=== PATIENT | female | born 1995 | race Caucasian/White ===

== ENCOUNTER 2016-12-23 16:42 | Emergency (ER) | payer MEDICAID, OTHER ==
[~2016-12-23] VITALS: Ht 152.4 cm; Wt 49.9 kg
[2016-12-23 16:55] VITALS: BP_SYST 112
[2016-12-23] MEDS ORDERED: IBUPROFEN 800 MG TABLET PO ONE (17:30)
[2016-12-23 17:48] VITALS: BP_SYST 112
== END 2016-12-23 17:48 | disposition home or self-care (01) ==
LOC: SED 16:42
DX: J20.9 Acute bronchitis, unspecified (principal)
CPT/HCPCS: 81025; 99283

== ENCOUNTER 2018-01-30 17:34 | Emergency (ER) | payer OTHER ==
[~2018-01-30] VITALS: Ht 152.4 cm; Wt 50.3 kg
[2018-01-30 17:41] VITALS: BP_SYST 132
[2018-01-30] MEDS ORDERED: IBUPROFEN 400 MG TABLET PO ONE (19:15)
[2018-01-30 19:51] VITALS: BP_SYST 128
== END 2018-01-30 19:51 | disposition home or self-care (01) ==
LOC: SED 17:34
DX: R51 Headache (principal); R11.0 Nausea; R03.0 Elevated blood-pressure reading, without diagnosis of hypertension; Z86.2 Personal history of diseases of the blood and blood-forming organs and certain disorders involving the immune mechanism
CPT/HCPCS: 70450-TC; 81025; 99284

== ENCOUNTER 2020-08-29 18:25 | Emergency (ER) | payer OTHER ==
[~2020-08-29] VITALS: Ht 152.4 cm; Wt 56.2 kg
[2020-08-29 18:27] VITALS: BP_SYST 105
[2020-08-29] MEDS ORDERED: KETOROLAC TROMETHAMINE 60 MG/2 ML VIAL IM ONE (18:45)
[2020-08-29] MEDS ORDERED: CYCLOBENZAPRINE HCL 10 MG TABLET (FLEXERIL) PO ONE (20:00)
[2020-08-29 20:05] VITALS: BP_SYST 105
== END 2020-08-29 20:06 | disposition home or self-care (01) ==
LOC: SED 18:25
DX: S16.1XXA Strain of muscle, fascia and tendon at neck level, initial encounter (principal); S46.811A Strain of other muscles, fascia and tendons at shoulder and upper arm level, right arm, initial encounter; S09.90XA Unspecified injury of head, initial encounter; V49.9XXA Car occupant (driver) (passenger) injured in unspecified traffic accident, initial encounter; Y93.89 Activity, other specified; Y92.413 State road as the place of occurrence of the external cause; Y99.8 Other external cause status
CPT/HCPCS: 70450-TC; 72125-TC; 73030; 76376; 81025; 96372; 99285

== ENCOUNTER 2021-07-11 23:26 | Emergency (ER) | payer OTHER ==
[~2021-07-11] VITALS: Ht 152.4 cm; Wt 52.2 kg
[2021-07-11 23:35] VITALS: BP_SYST 113
[2021-07-12 00:26] LABS: BASOPHILS % (AUTO) 0.4 % (0.0-2.0); EOSINOPHILS # (AUTO) 0.1 K/uL (0.0-0.4); HEMATOCRIT 39.7 % (36-48); HEMOGLOBIN 12.9 g/dL (12.0-16.0); LYMPHOCYTES # (AUTO) 2.7 K/uL (1.0-5.5); LYMPHOCYTES % (AUTO) 31.4 % (20.5-51.5); MEAN CORPUSCULAR HEMOGLOBIN 26 pg (27-31); MEAN CORPUSCULAR HGB CONC 32 % (32-36); MEAN CORPUSCULAR VOLUME 80 fL (79.0-98.0); MONOCYTES # (AUTO) 0.5 K/uL (0.0-1.0); MONOCYTES % (AUTO) 5.6 % (1.7-9.3); NEUTROPHILS # (AUTO) 5.3 K/uL (1.8-7.7); NEUTROPHILS % (AUTO) 61.6 % (40.0-70.0); PLATELET COUNT (AUTO) 345 K/uL (130-430); RED BLOOD CELL COUNT(AUTO) 4.95 MIL/uL (4.2-6.2); RED CELL DISTRIBUTION WIDTH 17.2 % (9.0-15.0); WHITE BLOOD COUNT (AUTO) 8.6 K/uL (4.8-10.8)
[2021-07-12] MEDS ORDERED: NACL 0.9% 1,000 ML IV ONE (00:30)
[2021-07-12 00:35] LABS: CREATININE 0.64 mg/dL (0.55-1.30); POTASSIUM 3.1 mmol/L (3.5-5.1)
[2021-07-12 01:01] LABS: ALBUMIN 4.2 g/dL (3.4-4.8); THYROID STIMULATING HORMONE 5.22 uIu/mL (0.36-3.74); TOTAL BILIRUBIN 0.2 mg/dL (0.0-1.0)
[2021-07-12] MEDS ORDERED: POTASSIUM CHLORIDE 20 MEQ TAB.PRT.SR PO ONE (02:45)
[2021-07-12] MEDS ORDERED: ACET1TAB23 PO (02:57)
[2021-07-12] MEDS ORDERED: NAPR-1169 PO (02:57)
[2021-07-12 03:41] VITALS: BP_SYST 105
== END 2021-07-12 03:39 | disposition home or self-care (01) ==
LOC: SED 23:26
DX: R07.81 Pleurodynia (principal); Z79.899 Other long term (current) drug therapy
CPT/HCPCS: 36415; 71045; 80053; 84436; 84443; 84484; 84703; 85025; 85379; 93005; 96360; 99285; J7030